=== PATIENT | female | born 1995 | race Caucasian/White ===

== ENCOUNTER 2022-11-22 16:53 | Emergency (ER) | payer MEDICAID ==
[~2022-11-22] VITALS: Ht 182.9 cm; Wt 87.5 kg
[2022-11-22 17:04] VITALS: BP 140/76
[2022-11-22] MEDS ORDERED: AMOX500C2 PO (17:30)
[2022-11-22] MEDS ORDERED: IBUPROFEN 600 MG TABLET PO ONE (17:30)
[2022-11-22] MEDS ORDERED: AMOXICILLIN TRIHYDRATE 500 MG CAPSULE PO ONE (17:30)
[2022-11-22] MEDS ORDERED: IBUPROFEN 600 MG TABLET ONE (17:34)
[2022-11-22] MEDS ORDERED: AMOXICILLIN TRIHYDRATE 250 MG CAPSULE ONE (17:34)
== END 2022-11-22 17:43 | disposition home or self-care (01) ==
LOC: ER 17:05
DX: J02.0 Streptococcal pharyngitis (principal)

== ENCOUNTER 2022-11-25 12:43 | Emergency (ER) | payer MEDICAID ==
[~2022-11-25] VITALS: Ht 182.9 cm; Wt 87.1 kg
[~2022-11-25 12:43] MED LIST: AMOX500C2 PO
[2022-11-25 15:04] VITALS: BP 107/64
[2022-11-25] MEDS ORDERED: IBUP-1955 PO (15:50)
[2022-11-25] MEDS ORDERED: BENZ-13 PO (15:50)
== END 2022-11-25 16:06 | disposition home or self-care (01) ==
LOC: ER 12:59
DX: J02.9 Acute pharyngitis, unspecified (principal); J06.9 Acute upper respiratory infection, unspecified; R05.9 Cough, unspecified; R09.89 Other specified symptoms and signs involving the circulatory and respiratory systems; Z79.899 Other long term (current) drug therapy